=== PATIENT | female | born 1980 | race Caucasian/White ===

== ENCOUNTER 2017-10-22 13:41 | Outpatient (CLI) | payer OTHER | END 2017-10-22 13:49 | disposition home or self-care (01) | LOC: SONOGRAMA 13:41 | DX: N60.11 Diffuse cystic mastopathy of right breast (principal); N60.12 Diffuse cystic mastopathy of left breast; N63.13 Unspecified lump in the right breast, lower outer quadrant ==

== ENCOUNTER 2017-11-07 08:49 | Outpatient (CLI) | payer OTHER | END 2017-11-07 08:59 | disposition home or self-care (01) | LOC: RX STUDY 08:49 | DX: N70.11 Chronic salpingitis (principal) ==

== ENCOUNTER 2018-12-01 13:26 | Emergency (ER) | payer OTHER ==
[~2018-12-01] VITALS: Ht 160 cm; Wt 93.4 kg
== END 2018-12-01 17:43 | disposition home or self-care (01) ==
LOC: ER 13:26
DX: O20.0 Threatened abortion (principal)

== ENCOUNTER 2019-05-07 12:10 | Outpatient (CLI) | payer OTHER | END 2019-05-07 13:56 | disposition home or self-care (01) | LOC: OBS/DEL 12:10 | DX: O35.8XX0 Maternal care for other (suspected) fetal abnormality and damage, not applicable or unspecified (principal); Z34.83 Encounter for supervision of other normal pregnancy, third trimester ==

== ENCOUNTER 2019-05-09 12:30 | Outpatient (CLI) | payer OTHER | END 2019-05-09 13:25 | disposition home or self-care (01) | LOC: NST 12:30 | DX: Z34.83 Encounter for supervision of other normal pregnancy, third trimester (principal) ==

== ENCOUNTER 2019-06-19 17:50 | Emergency (ER) | payer OTHER ==
[~2019-06-19] VITALS: Ht 160 cm; Wt 86.2 kg
== END 2019-06-19 21:34 | disposition home or self-care (01) ==
LOC: ER 17:50
DX: K80.80 Other cholelithiasis without obstruction (principal); R11.11 Vomiting without nausea; R10.13 Epigastric pain

== ENCOUNTER → 2019-06-24 | Outpatient (CLI) | payer OTHER ==
[~2019-06-24] MED LIST: LEVSIN/SL0.125 MG SL
== END | disposition home or self-care (01) ==
LOC: RAD 16:02
DX: K81.1 Chronic cholecystitis (principal)

== ENCOUNTER 2019-07-07 08:59 | Day surgery (SDC) | payer OTHER ==
[~2019-07-07] VITALS: Ht 160 cm; Wt 90.7 kg
[2019-07-07] MEDS ORDERED: PERCOCET 5-3251 EACH PO (12:20)
[2019-07-07] MEDS ORDERED: KETO10TA2 PO (12:20)
[2019-07-07] MEDS ORDERED: ZOFRAN4 MG PO (12:21)
[2019-07-07] MEDS ORDERED: DEXILANT60 MG PO (12:21)
== END 2019-07-07 18:03 | disposition home or self-care (01) ==
LOC: CIR.AMB 08:59
DX: K80.10 Calculus of gallbladder with chronic cholecystitis without obstruction (principal)

== ENCOUNTER 2022-10-27 06:00 | Day surgery (SDC) | payer OTHER ==
[~2022-10-27] VITALS: Ht 160 cm; Wt 88.5 kg
[~2022-10-27 06:00] MED LIST changes: +DEXILANT60 MG PO; +KETO10TA2 PO; +LEXAPRO5 MG PO; +MAXFE CAPLET1 EACH PO; +PERCOCET 5-3251 EACH PO; +PRENATAL TABLE1 EAC1 PO; +SYNTHROID50 MCG PO; +ZOFRAN4 MG PO
== END 2022-10-27 16:15 | disposition home or self-care (01) ==
LOC: CIR.AMB 06:00 → CERTIFICAD 11:15 → CIR.AMB 16:15
PROVIDERS: ATTEND Urology
DX: N36.1 Urethral diverticulum (principal); N39.0 Urinary tract infection, site not specified